=== PATIENT | female | born 1995 | race Caucasian/White ===

== ENCOUNTER 2025-01-24 14:50 | Outpatient (CLI) | payer BC, MEDICAID, SELFPAY ==
[2025-01-25 07:48] LABS: Anti-Double Strand DNA AB 1 IU/mL; SM/RNP Antibodies <1.0 NEG AI (<1.0 NEG); SS-B/LA IGG <1.0 NEG AI (<1.0 NEG); Scleroderma Ab(Scl-70) Ab <1.0 NEG AI (<1.0 NEG); Ss-A/Ro Igg <1.0 NEG AI (<1.0 NEG)
== END 2025-01-24 14:51 | disposition home or self-care (01) ==
LOC: LAB 14:54
PROVIDERS: Visit Provider Nurse Practitioner Family
DX: M06.4 Inflammatory polyarthropathy (principal); K11.7 Disturbances of salivary secretion
CPT/HCPCS: 36415; 85651; 86038; 86160; 86200; 86225; 86235

== ENCOUNTER → 2025-06-19 10:41 | Outpatient (BNVA) | payer BC, MEDICAID, SELFPAY | PROVIDERS: Referring Provider Nurse Practitioner Family; Visit Provider Internal Medicine Rheumatology | DX: M25.59 Pain in other specified joint (principal); M54.9 Dorsalgia, unspecified; G89.29 Other chronic pain | CPT/HCPCS: 36415; 72100; 72202; 80076; 82306; 82565; 83520; 85025; 85651; 86140; 86200; 86431; 86812 ==